=== PATIENT | male | born 1930 | race Caucasian/White ===

== ENCOUNTER 2018-01-30 12:01 | Emergency (ER) | payer BC ==
[~2018-01-30] VITALS: Ht 180.3 cm; Wt 68.0 kg
[~2018-01-30 12:01] MED LIST: ALLOPURINOL 10100 M1 PO; ANTACID400 MG; CARDIZEM CD120 MG PO; CARDIZEM CD240 MG PO; CENTRUM SILVER1 EAC4 PO; COUMADIN 2.5MG2.5 M1 PO; COUMADIN 5 MG TA5 M1; DYAZIDE 37.5-21 EACH PO; FISH OIL 1,001000 M2 PO; HEARTBURN PREVE10 MG PO; HYDROCODON-ACE1 EAC7; MAXZIDE-25 MG1 EACH PO; XALATAN2.5 ML OPHTHALMIC; [UNRECOGNIZED DRUG - OTHER]
[2018-01-30 12:48] LABS: ABSOLUTE EOSINOPHILS 0.2 thou/uL (0.0-0.7); ABSOLUTE LYMPHOCYTES 1.2 thou/uL (0.8-5.3); ABSOLUTE MONOCYTES 0.7 thou/uL (0.0-1.2); ABSOLUTE NEUTROPHILS 5.2 thou/uL (1.6-8.1); BASOPHILS 0.5 %; EOSINOPHILS 2.5 %; HEMATOCRIT 40.4 % (42.0-52.0); HEMOGLOBIN 13.5 gm/dL (14.0-18.0); LYMPHOCYTES 15.9 %; MCHC 33.4 g/dL (28.0-37.0); MCV 98.8 fL (80.0-100.0); MPV 7.3 fl. (7.2-11.1); NUCLEATED RBCS 0 /100WBC; PLATELET COUNT* 251 thou/uL (150-400); POLYS 71.1 %; RBC 4.09 mil/uL (4.50-6.00); RDW-CV 17.1 % (10.5-14.5); WBC 7.3 thou/uL (4.0-11.0)
[2018-01-30 12:55] LABS: CALCIUM 9.2 mg/dL (8.5-10.1); CREATININE 1.4 mg/dL (0.6-1.3); POTASSIUM 3.7 mmol/L (3.5-5.1)
[2018-01-30 12:57] LABS: INR 2.1; PROTIME 19.9 Seconds (9.20-11.50)
[2018-01-30 13:02] LABS: ALBUMIN 3.3 g/dL (3.4-5.0); TOTAL BILIRUBIN 0.8 mg/dL (<0.1-1.0); TOTAL PROTEIN 8.4 g/dL (6.4-8.2)
[2018-01-30 17:20] VITALS: BP 123/72
--- NOTE | 2018-01-31 11:30 | EKG ---
[place] [address] ELECTROCARDIOGRAM REPORT Name: KRIS THAKUR Room: [facility]#: [id number] Admission: 01/30/18 Attend Phys: Discharge: 01/30/18 Date of : [birth year] Report #: [id number] THIS REPORT FOR: //name// [facility] ED Test Date: 2018-01-30 Test Time: 14:39:30 Pat Name: KRISSRINIVASA HERNANDEZLOWE Department: Room: Gender: M Document Manager: Robert CAMPBELL : 1930 Requested By: Kiesha Arreaga Order Number: [id number] MD: Adal Feldman Measurements Intervals [place] Rate: 64 P: 0 ND: 50 QRS: -53 QRSD: 108 T: 40 QT: 449 QTc: 464 Interpretive Statements Atrial fibrillation Left anterior fascicular block Cannot rule out inferior infarct old Anterior infarct, old Compared to ECG 07/11/2016 11:12:29 Short ND interval now present Myocardial infarct finding now present Q waves now present Electronically Signed On 01-31-2018 11:30:24 CDT by Adal Feldman [email or web address] <ELECTRONICALLY SIGNED> By: Adal Feldman MD, FACC 01/31/18 [id number] Adal Feldman MD, FAC /EPI
== END 2018-01-30 17:20 | disposition short-term general hospital (02) ==
LOC: M.ERS 12:01
PROVIDERS: Nurse Practitioner Family
DX: S12.490A Other displaced fracture of fifth cervical vertebra, initial encounter for closed fracture (principal); S09.90XA Unspecified injury of head, initial encounter; I10 Essential (primary) hypertension; I48.91 Unspecified atrial fibrillation; M10.9 Gout, unspecified; Z85.828 Personal history of other malignant neoplasm of skin; W18.39XA Other fall on same level, initial encounter; Y93.89 Activity, other specified; Y92.89 Other specified places as the place of occurrence of the external cause; Y99.8 Other external cause status

== ENCOUNTER → 2018-04-14 | Outpatient (CLI) | payer BC | LOC: M.RAD 12:01 | DX: J84.9 Interstitial pulmonary disease, unspecified (principal); J81.0 Acute pulmonary edema; I48.91 Unspecified atrial fibrillation; I50.32 Chronic diastolic (congestive) heart failure ==